=== PATIENT | female | born 1995 | race Caucasian/White ===

== ENCOUNTER 2017-03-19 20:51 | Emergency (ER) | payer MEDICAID ==
--- NOTE | 2017-03-19 21:01 | Emergency Department Record ---
History of Present Illness - General Stated Complaint: NOT FEELING RIGHT Time Seen by Provider: 03/19/17 20:54 Source: Patient, EMS Mode of Arrival: Stretcher Limitations: No limitations - History of Present Illness Initial comments: 21 yo female presents to ED for evaluation of "not feeling right, all over body numbness" after taking Benadryl 50 mg 30 minutes ago for her poison ga symptoms. Patient's SO reports that she has also been under a lot of stress and that may be contributing to her symptoms as well. SO reports a history of "passing out" and reports that tonight while seated in a chair the patient "passed out" but did not fall or injury herself, and that she came to within seconds. Patient denies health problems at her baseline. Onset/Timin -: Minutes(s) Quality: Constant Consistency: Constant Improves with: None Worsens with: None Associated Symptoms: Denies other symptoms Treatments Prior to Arrival: None - [place] Coma Scale Eye Response: (4) Open spontaneously Motor Response: (6) Obeys commands Verbal Response: (5) Oriented [place] Total: 15 - Related Data Home Medications Medication Instructions Recorded Confirmed Last Taken Multivitamin [Daily Multiple 1 each PO DAILY 03/19/17 03/19/17 03/19/17 Vitamin] Allergies Allergy/AdvReac Type Severity Reaction Status Date / Time No Known Drug Allergies Allergy Verified 03/19/17 21:05 Review of Systems Constitutional: Denies: Chills, Fever, Malaise, Night sweats Eyes: Denies: Eye discharge, Eye pain ENT: Denies: Congestion, Ear pain, Epistaxis Respiratory: Denies: Cough, Dyspnea Cardiovascular: Denies: Chest pain, Dyspnea on exertion Endocrine: Denies: Fatigue, Heat or cold intolerance Gastrointestinal: Denies: Abdominal pain, Nausea, Vomiting Genitourinary: Denies: Incontinence, Retention Musculoskeletal: Denies: Arthralgia, Back pain, Gout, Joint swelling Skin: Denies: Bruising, Change in color Neurological: Reports: Confusion, Numbness, Weakness. Denies: Abnormal gait, Headache, Seizure Psychiatric: Denies: Anxiety Hematological/Lymphatic: Denies: Anemia, Blood Clots Physical Exam - General General Appearance: Alert, Oriented x3, Cooperative, Other (Patient will not make eye contact with me unless asked directly to look at me, answers questions with 1-word answers. Patient able to move herself from [facility] EMS cart to the ED cart, however on neurological testing has 2/5 symmetric lower extremity strength , 3/5 symmetric upper extremity strength.) Limitations: No limitations - Head Head exam: Atraumatic, Normocephalic, Normal inspection Head exam detail: negative: Abrasion, Contusion, Roland's sign, General tenderness, Hematoma, Laceration - Eye Eye exam: Normal appearance. negative: Conjunctival injection, Periorbital swelling, Periorbital tenderness, Scleral icterus - ENT Ear exam: negative: Auricular hematoma, Auricular trauma Nasal Exam: negative: Active bleeding, Discharge, Dried blood, Foreign body Mouth exam: negative: Drooling, Laceration, Muffled voice, Tongue elevation - Neck Neck exam: Normal inspection. negative: Meningismus, Tenderness - Respiratory Respiratory exam: Normal lung sounds bilaterally. negative: Rales, Respiratory distress, Rhonchi, Stridor - Cardiovascular Cardiovascular Exam: Regular rate, Normal rhythm, Normal heart sounds - GI/Abdominal GI/Abdominal exam: Soft. negative: Rebound, Rigid, Tenderness - Rectal Rectal exam: Deferred - exam: Deferred - Extremities Extremities exam: Normal inspection. negative: Calf tenderness, Pedal edema, Tenderness - Back Back exam: Denies: CVA tenderness (R), CVA tenderness (L) - Neurological Neurological exam: Alert, Oriented X3, Other (see neurological findings above) - Psychiatric Psychiatric exam: Flat affect - Skin Skin exam: Normal color. negative: Abrasion Type of lesion: negative: abrasion Course - Reevaluation(s) Reevaluation #1: 03/19/17 21:02 Per EMS, patient ambulated from her home to the ambulance with steady gait, able to move from EMS cart to the ED cart without difficulty. 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 Will reassess and have the patient ambulated to the bathroom to obtain UA sample for less obvious neurological examination. Reevaluation #2: 03/19/17 21:06 EKG: NSR 69 Normal axis, normal intervals No acute ST-T wave changes or arrhythmias noted. Reevaluation #3: 03/19/17 21:30 Patient ambulated to the bathroom with her SO to steady her, no focal weakness noted on examination. Reevaluation #4: 03/19/17 22:03 Labs reviewed and are grossly unremarkable for an acute process. Patient has eaten and reports improvement in her symptoms. On examination, the patient has no focal neurologic deficits, but reports that her symptoms are improved. CT imaging is is not felkt to be of benefit based on the patient's examination and generalized weakness symptoms. Patient and her family were updated on all results and she appears stable for discharge with family members at the bedside. Medical Decision Making - Lab Data Result diagrams: 03/19/17 21:03 03/19/17 21:03 Disposition Disposition: Discharge Clinical Impression: Medication adverse effect Qualifiers: Encounter type: initial encounter Qualified Code(s): T88.7XXA - Unspecified adverse effect of drug or medicament, initial encounter Disposition: Home, Self-Care Condition: (2) Stable Instructions: Adverse Drug Reaction (ED) Additional Instructions: Return to ED if your symptoms worsen or if you have any concerns. Follow-up with your family doctor in 3-5 days as directed. Time of Disposition: 22:07 Quality - Quality Measures Quality Measures: N/A - Blood Pressure Screening Does Patient Have Any of the Following: No Blood Pressure Classification: Normal BP Reading Systolic Measurement: 110 Diastolic Measurement: 67 Screening for High Blood Pressure: < Normal BP, F/U Not Required > [[id number]]
[2017-03-19 21:11] LABS: BASO % 0.7 % (0-6); EOS % 5.6 % (0-6); GRAN % 69.6 % (47-80); HEMATOCRIT 44.6 % (35.0-47.0); HEMOGLOBIN 15.9 gm/dl (11.6-16.0); MEAN CELL VOLUME 84.3 fl (81-97); MEAN CORPUSCULAR HEMOGLOBIN 30.1 pg (27-33); MEAN CORPUSCULAR HGB CONC 35.7 g/dl (32-36); MEAN PLATELET VOLUME 10.2 fl (7.4-10.4); MONO % 4.1 % (0-9); PLATELET COUNT 391 K/uL (130-400); RED BLOOD COUNT 5.29 M/uL (3.80-5.40); RED CELL DISTRIBUTION WIDTH 12.4 % (11.5-14.5); WHITE BLOOD COUNT W/O DIFF 8.3 K/uL (4.2-12.2)
[2017-03-19 21:30] LABS: ALB/GLOB RATIO 1.5 (1.1-1.8); ALBUMIN 4.7 g/dL (4.0-5.0); ALKALINE PHOSPHATASE 82 U/L (35-104); ALT/SGPT 12 U/L (<33); AST/SGOT 16 U/L (10.0-35.0); BLOOD UREA NITROGEN 17 mg/dL (6-20); CREATININE 0.8 mg/dL (0.5-0.9); EST GLOMERULAR FILTRATION RATE > 60 mL/min; GLUCOSE,RANDOM 73 mg/dL (74-109); TOTAL PROTEIN 7.8 g/dL (6.6-8.7)
[2017-03-19 21:40] LABS: URINE APPEARANCE CLEAR; URINE BILIRUBIN NEGATIVE (NEGATIVE); URINE BLOOD TRACE-I (NEGATIVE); URINE COLOR YELLOW; URINE GLUCOSE (UA) NEGATIVE (NEGATIVE); URINE KETONE NEGATIVE (NEGATIVE); URINE LEUKOCYTE ESTERASE NEGATIVE (NEGATIVE); URINE NITRITE NEGATIVE (NEGATIVE); URINE PROTEIN NEGATIVE (NEGATIVE); URINE UROBILINOGEN 0.2 E.U./dL (0.20 - 1.00)
[2017-03-19 21:46] LABS: HCG,QUALITATIVE URINE NEGATIVE (NEGATIVE); URINE EPITHELIAL CELLS 0 - 2 (FEW); URINE RBC 0 - 2 (NONE SEEN); URINE WBC 0 - 2 (0-2/hpf)
[2017-03-19 21:47] LABS: AMPHETAMINE SCREEN URINE NOT DETECTED; BARBITURATE SCREEN URINE NOT DETECTED; BENZODIAZEPINE SCREEN URINE NOT DETECTED; COCAINE SCREEN URINE NOT DETECTED; METHADONE SCREEN URINE NOT DETECTED; METHAMPHETAMINE SCREEN NOT DETECTED; OPIATE SCREEN URINE NOT DETECTED; OXYCODONE SCREEN URINE NOT DETECTED; PHENCYCLIDINE SCREEN URINE NOT DETECTED; PROPOXYPHENE SCREEN URINE NOT DETECTED; THC SCREEN URINE NOT DETECTED; TRICYCLIC ANTIDEPRESSANT SCRN NOT DETECTED
== END 2017-03-19 22:34 | disposition home or self-care (01) ==
LOC: ER 20:51
DX: T45.0X5A Adverse effect of antiallergic and antiemetic drugs, initial encounter (principal); R20.0 Anesthesia of skin; R53.1 Weakness; R55 Syncope and collapse; Z79.899 Other long term (current) drug therapy; L23.7 Allergic contact dermatitis due to plants, except food
CPT/HCPCS: 99284 ×2; 85025; 80053; 81001; 81025; 80305; 93005; 93010; G0480; 80320